=== PATIENT | male | born 1970 | race Caucasian/White ===

== ENCOUNTER 2018-03-22 13:59 | Emergency (ER) | payer MEDICAID ==
--- NOTE | 2018-03-22 16:33 | Emergency Department Record ---
History of Present Illness - General Chief complaint: Abscess Stated complaint: RIGHT UPPER ARM INFECTION Time Seen by Provider: 03/22/18 15:57 Source: Patient Mode of Arrival: Ambulatory Limitations: No limitations - History of Present Illness Initial comments: The patient has a hx of skin abscesses and now has another to the back of the R arm for 1 week. He denies any fever, chills, vomiting or diarrhea. complaint: Abscess/boil Onset/Timin -: Week(s) Quality: Aching Worsens with: None Context: None - Related Data Previous Rx's Medication Instructions Recorded Clindamycin HCl [Cleocin HCl] 300 mg PO QID #28 capsule 03/22/18 Naproxen [Naprosyn] 500 mg PO BID #14 tablet. 03/22/18 Allergies Allergy/AdvReac Type Severity Reaction Status Date / Time No Known Allergies Allergy none Verified 03/22/18 16:23 Travel Screening - Travel/Exposure Within Last 30 Days Have you traveled within the last 30 days?: No - Travel/Exposure Within Last Year Have you traveled outside the [place] in the last year?: No - Additonal Travel Details Have you been exposed to anyone with a communicable illness?: No - Travel Symptoms Symptom Screening: None Review of Systems Constitutional: Denies: Chills, Fever Past Medical History - SOCIAL HISTORY Smoking Status: Light tobacco smoker (<10/day) Alcohol Use: Rare Drug Use: None - RESPIRATORY Hx Respiratory Disorders: No - CARDIOVASCULAR Hx Cardio Disorders: No - NEURO Hx Neuro Disorders: No - GI Hx GI Disorders: No - Hx Genitourinary Disorders: No - ENDOCRINE Hx Endocrine Disorders: No - MUSCULOSKELETAL Hx Musculoskeletal Disorders: No - PSYCH Hx Psych Problems: No - HEMATOLOGY/ONCOLOGY Hx Hematology/Oncology Disorders: No Family Medical History Any Significant Family History?: No Physical Exam - General General Appearance: Alert, Oriented x3, Cooperative, No acute distress - Head Head exam: Atraumatic, Normocephalic - Eye Eye exam: Normal appearance - Neck Neck exam: Normal inspection, Full ROM. negative: Tenderness - Respiratory Respiratory exam: Normal lung sounds bilaterally. negative: Respiratory distress - Cardiovascular Cardiovascular Exam: Regular rate, Normal rhythm, Normal heart sounds - Extremities Extremities exam: Normal capillary refill, Tenderness (At the abscess site. The abscess is pointing presently and ready to burst.), Other (The R arm and hand is NVI.). negative: Normal inspection (There is a large abscess to the medial R posterior arm with mild surrounding cellultis.) Image of Full Body: 1 - Area of abscess and mild surrounding cellulitis. - Back Back exam: Reports: Normal inspection - Neurological Neurological exam: Alert. negative: Motor sensory deficit Course Vital Signs 03/22/18 16:16 Temperature 98.0 F Pulse Rate 110 H Respiratory 20 Rate Blood Pressure 130/76 Pulse Ox 100 - Reevaluation(s) Reevaluation #1: Procedure note: The R arm abscess was cleansed with betadine and a # 10 blade was used to Incise and open up the area. A moderate amount of purulent material was expressed. The cavity was probed and then packed with iodoform gauze. There were no complications. 03/22/18 16:30 Disposition Disposition: Discharge Clinical Impression: Abscess of skin Qualifiers: Site of cutaneous abscess: extremity Site of cutaneous abscess of extremity: upper extremity Laterality: right Qualified Code(s): L02.413 - Cutaneous abscess of right upper limb Disposition: Home, Self-Care Condition: (2) Stable Instructions: Abscess Incision and Drainage (ED) Additional Instructions: Please keep the area clean and dry for 2 days and then removed the packing at home in 2 days. Take the Clindamycin as directed and use Naprosyn for pain. Please return to the ER for any worsening symptoms. Please see a family doctor in 1-2 weeks for recheck also. Prescriptions: Clindamycin HCl [Cleocin HCl] 300 mg PO QID #28 capsule Naproxen [Naprosyn] 500 mg PO BID #14 tablet.dr Forms: Patient Portal Access Time of Disposition: 16:33 Quality - Quality Measures Quality Measures: N/A - Blood Pressure Screening View Details: Yes Does Patient Have Any of the Following: No Blood Pressure Classification: Pre-Hypertensive BP Reading Systolic Measurement: 130 Diastolic Measurement: 76 Screening for High Blood Pressure: < Pre-Hypertensive BP, F/U Documented > [ G8950] Pre-Hypertensive Follow-up Interventions: Referral to alternative/primary care provider.
== END 2018-03-22 16:45 | disposition home or self-care (01) ==
LOC: ER 13:59
DX: L02.413 Cutaneous abscess of right upper limb (principal); F17.210 Nicotine dependence, cigarettes, uncomplicated
CPT/HCPCS: 10060; 99284

== ENCOUNTER 2018-04-15 11:28 | Emergency (ER) | payer MEDICAID ==
[2018-04-15] MEDS ORDERED: KETOROLAC 30 MG/ML VIAL IM ONE (12:08)
--- NOTE | 2018-04-15 12:12 | Emergency Department Record ---
History of Present Illness - General Chief complaint: Lower Extremity Pain Stated complaint: HIP AND FOOT PAIN Time Seen by Provider: 04/15/18 12:00 Source: Patient Mode of Arrival: Wheelchair Limitations: No limitations - History of Present Illness Initial comments: The patient is here due to injuring his R knee and ankle while falling 3 days ago. Since he has not been able to weight bear due to the pain. He denies any fever, chills, or numbness. The patient does have a hx of gouty arthritis in the feet. MD Complaint: Extremity pain Onset/Timin -: Days(s) Location: Right, Lower Leg Improves with: Nothing Worsens with: Nothing, Weight bearing, Other - Related Data Previous Rx's Medication Instructions Recorded Prednisone [Prednisone 20Mg] 40 mg PO DAILY #10 tab 04/15/18 Tramadol HCl 50 mg PO Q8H #20 tab 04/15/18 Allergies Allergy/AdvReac Type Severity Reaction Status Date / Time No Known Allergies Allergy none Verified 03/22/18 16:23 Travel Screening - Travel/Exposure Within Last 30 Days Have you traveled within the last 30 days?: No - Travel/Exposure Within Last Year Have you traveled outside the [place] in the last year?: No - Additonal Travel Details Have you been exposed to anyone with a communicable illness?: No - Travel Symptoms Symptom Screening: None Review of Systems Constitutional: Denies: Chills, Fever Eyes: Denies: Eye discharge ENT: Denies: Congestion Respiratory: Denies: Cough, Dyspnea Past Medical History - SOCIAL HISTORY Smoking Status: Current every day smoker Alcohol Use: None Alcohol Use Comment: quit 15 yrs Drug Use: None - RESPIRATORY Hx Respiratory Disorders: No - CARDIOVASCULAR Hx Cardio Disorders: No - NEURO Hx Neuro Disorders: No - GI Hx GI Disorders: No - Hx Genitourinary Disorders: No - ENDOCRINE Hx Endocrine Disorders: No - MUSCULOSKELETAL Hx Musculoskeletal Disorders: No - PSYCH Hx Psych Problems: No - HEMATOLOGY/ONCOLOGY Hx Hematology/Oncology Disorders: No Family Medical History Any Significant Family History?: No Physical Exam - General General Appearance: Alert, Oriented x3, Cooperative, No acute distress - Head Head exam: Atraumatic, Normocephalic, Normal inspection - Eye Eye exam: Normal appearance - Neck Neck exam: Normal inspection, Full ROM. negative: Tenderness - Respiratory Respiratory exam: Normal lung sounds bilaterally. negative: Respiratory distress - Cardiovascular Cardiovascular Exam: Regular rate, Normal rhythm, Normal heart sounds - Extremities Extremities exam: Tenderness (There is significant tenderness to the R knee and R ankle to palpation. There are mild effusions over both joints and decreased ROM due to the pain.), Other (The R lower leg and foot is NVI with normal pulses.). negative: Normal inspection, Full ROM, Pedal edema Course Vital Signs 04/15/18 11:51 Temperature 98.9 F Pulse Rate 107 H Respiratory 18 Rate Blood Pressure 133/96 Pulse Ox 97 - Reevaluation(s) Reevaluation #1: The patient is doing better but is still having pain. I did discuss the lab results and the need for F/U. 04/15/18 13:21 Medical Decision Making - Data Complexity MDM Data: X-Ray Ordered and/or Reviewed - Radiology Data Radiology results: Report reviewed (R knee: Joint effusion, O/W neg. R ankle : arthritic changes but no acute changes.) Disposition Disposition: Discharge Clinical Impression: Leg pain, right Disposition: Home, Self-Care Condition: (2) Stable Instructions: Knee Sprain (ED), Leg Sprain (ED) Additional Instructions: Please ice and elevate the R leg and use the walter wraps to the R knee and ankle. Use crutches for walking. Please take the Tramadol along with the Prednisone. Please see a family doctor later this week for further evaluation. Return to the ER for any worsening symptoms, pain, swelling, or fever. Prescriptions: Prednisone [Prednisone 20Mg] 40 mg PO DAILY #10 tab Tramadol HCl 50 mg PO Q8H #20 tab Forms: Patient Portal Access Time of Disposition: 13:26 Quality - Quality Measures Quality Measures: N/A - Blood Pressure Screening View Details: Yes Does Patient Have Any of the Following: No Blood Pressure Classification: Hypertensive Reading Systolic Measurement: 133 Diastolic Measurement: 96 Screening for High Blood Pressure: < First Hypertensive BP, F/U Documented > [ G8950] First Hypertensive Follow-up Interventions: Referral to alternative/primary care provider.
--- NOTE | 2018-04-16 08:42 | RADIOLOGY REPORT ---
EXAM: RIGHT ANKLE HISTORY: RECENT FALL WITH GENERALIZED ANKLE PAIN AND SWELLING. TECHNIQUE: Three views of the right ankle were obtained. Comparison: Right foot radiographs 09/28/10. FINDINGS: Diffuse ankle soft tissue swelling. Tiny 3 mm calcific density at the tip of the medial malleolus suggesting age indeterminate avulsion. Nonspecific cortical irregularity along the posterior talus which could represent degenerative change or age indeterminate trauma. Anterior tibiotalar osteophytes suggest osteoarthrosis. Small plantar calcaneal enthesophyte, enlarged since comparison. Prominent incidental os peroneum is noted. IMPRESSION: ABOVE. JOB NUMBER: [id number] [facility]
--- NOTE | 2018-04-16 08:51 | RADIOLOGY REPORT ---
EXAM: RIGHT KNEE HISTORY: FALL, MEDIAL KNEE PAIN. TECHNIQUE: Three views of the right knee were obtained. Comparison: None. FINDINGS: Large knee joint effusion. No acute fracture is detected. No dislocation. No significant degenerative findings. IMPRESSION: LARGE KNEE JOINT EFFUSION WITHOUT DEFINITE ACUTE OSSEOUS ABNORMALITY. JOB NUMBER: [id number] [facility]
== END 2018-04-15 13:40 | disposition home or self-care (01) ==
LOC: ER 11:28
DX: G89.11 Acute pain due to trauma (principal); M25.561 Pain in right knee; M25.571 Pain in right ankle and joints of right foot; F17.210 Nicotine dependence, cigarettes, uncomplicated
CPT/HCPCS: 99283; 96372; 99284; 73610; 73562; J1885

== ENCOUNTER 2018-04-29 13:23 | Emergency (ER) | payer MEDICAID ==
--- NOTE | 2018-04-29 13:50 | Emergency Department Record ---
History of Present Illness - General Chief complaint: Lower Extremity Pain Stated complaint: RT LEG PAIN Time Seen by Provider: 04/29/18 13:25 Source: Patient Mode of Arrival: Ambulatory Limitations: No limitations - History of Present Illness Initial comments: The patient is here due to R knee and ankle pain for almost 3 weeks. He has a hx of gout and now has had pain and swelling in the knee and ankle for weeks. The patient was here in the ER 2 weeks ago and was treated with prednisone and tramadol and did improve. He ran out of medicines and has not followed up with a PCP. MD Complaint: Extremity pain Onset/Timin -: Week(s) Location: Right, Ankle, Foot, Lower Leg History of Same: Yes Improves with: Nothing Worsens with: Nothing Associated Symptoms: Denies other symptoms - Related Data Previous Rx's Medication Instructions Recorded Colchicine 0.6 mg PO BID #20 tablet 04/29/18 Naproxen [Naprosyn] 500 mg PO BID #20 tablet. 04/29/18 Allergies Allergy/AdvReac Type Severity Reaction Status Date / Time No Known Allergies Allergy none Verified 04/29/18 13:30 Travel Screening - Travel/Exposure Within Last 30 Days Have you traveled within the last 30 days?: No Review of Systems Constitutional: Denies: Chills, Fever Eyes: Denies: Eye discharge ENT: Denies: Congestion Respiratory: Denies: Cough, Dyspnea Past Medical History - SOCIAL HISTORY Smoking Status: Current every day smoker Alcohol Use: None Drug Use: None - RESPIRATORY Hx Respiratory Disorders: No - CARDIOVASCULAR Hx Cardio Disorders: No - NEURO Hx Neuro Disorders: No - GI Hx GI Disorders: No - Hx Genitourinary Disorders: No - ENDOCRINE Hx Endocrine Disorders: No - MUSCULOSKELETAL Hx Musculoskeletal Disorders: No - PSYCH Hx Psych Problems: No - HEMATOLOGY/ONCOLOGY Hx Hematology/Oncology Disorders: No Family Medical History Any Significant Family History?: No Physical Exam - General General Appearance: Alert, Oriented x3, Cooperative, No acute distress - Head Head exam: Atraumatic, Normocephalic, Normal inspection - Eye Eye exam: Normal appearance, PERRL - Neck Neck exam: Normal inspection, Full ROM. negative: Tenderness - Respiratory Respiratory exam: Normal lung sounds bilaterally. negative: Respiratory distress - Cardiovascular Cardiovascular Exam: Regular rate, Normal rhythm, Normal heart sounds - Extremities Extremities exam: Joint swelling (There is a mild R knee effusion and diffuse mild tenderness to palpation over the R knee and ankle. There is no joint erythema, warmth or signs of any infection.), Normal capillary refill, Tenderness, Other (The R DP pulse is strong and 2+.). negative: Normal inspection, Full ROM, Pedal edema Course Vital Signs 04/29/18 13:31 Temperature 97.4 F L Pulse Rate 105 H Respiratory 16 Rate Blood Pressure 156/96 Pulse Ox 99 - Reevaluation(s) Reevaluation #1: I did discuss the issues with the patient and the need for further evaluation due to the gout. The patient is aware and will F/U. 04/29/18 15:29 Medical Decision Making - Data Complexity MDM Data: Labs Ordered and/or Reviewed, X-Ray Ordered and/or Reviewed - Lab Data Result diagrams: 04/29/18 13:15 04/29/18 13:15 - Radiology Data Radiology results: Report reviewed (R foot: Neg for acute changes, Gout R 1st MTP joint.) Disposition Disposition: Discharge Clinical Impression: Gout attack Qualifiers: Gout site: multiple sites Gout etiology: unspecified cause Qualified Code(s): M10.9 - Gout, unspecified Disposition: Home, Self-Care Condition: (2) Stable Instructions: Low Purine Diet (ED), Gout (ED) Additional Instructions: Please take the Naprosyn and Colchicine as directed and please see a family doctor for recheck later this week. Prescriptions: Colchicine 0.6 mg PO BID #20 tablet Naproxen [Naprosyn] 500 mg PO BID #20 tablet.dr Forms: Patient Portal Access Time of Disposition: 15:31 Quality - Quality Measures Quality Measures: N/A - Blood Pressure Screening View Details: Yes Does Patient Have Any of the Following: No Blood Pressure Classification: Hypertensive Reading Systolic Measurement: 156 Diastolic Measurement: 96 Screening for High Blood Pressure: < First Hypertensive BP, F/U Documented > [ G8950] First Hypertensive Follow-up Interventions: Referral to alternative/primary care provider.
[2018-04-29 13:53] LABS: HEMATOCRIT 46.8 % (42.0-52.0); HEMOGLOBIN 15.7 gm/dl (14.0-18.0); MEAN CELL VOLUME 90.7 fl (81-97); MEAN CORPUSCULAR HEMOGLOBIN 30.4 pg (27-33); MEAN CORPUSCULAR HGB CONC 33.5 g/dl (32-36); MEAN PLATELET VOLUME 9.6 fl (7.4-10.4); PLATELET COUNT 409 K/uL (130-400); RED BLOOD COUNT 5.16 M/uL (4.40-5.70); RED CELL DISTRIBUTION WIDTH 13.1 % (11.5-14.5); WHITE BLOOD COUNT W/O DIFF 13.4 K/uL (4.2-12.2)
[2018-04-29 14:07] LABS: BLOOD UREA NITROGEN 13 mg/dL (6-20); CREATININE 1.1 mg/dL (0.7-1.2); EST GLOMERULAR FILTRATION RATE > 60 mL/min; TOTAL PROTEIN 8.1 g/dL (6.6-8.7)
[2018-04-29 14:09] LABS: GLUCOSE,RANDOM 97 mg/dL (74-109)
[2018-04-29 14:12] LABS: ALB/GLOB RATIO 1.3 (1.1-1.8); ALBUMIN 4.5 g/dL (4.0-5.0); ALKALINE PHOSPHATASE 95 U/L (40-129); ALT/SGPT 61 U/L (<41); AST/SGOT 33 U/L (10.0-50.0)
[2018-04-29 14:34] LABS: ERYTHROCYTE SEDIMENTATION RATE 50 mm/hr (0-15)
--- NOTE | 2018-04-30 12:58 | RADIOLOGY REPORT ---
EXAM: RIGHT FOOT HISTORY: PAIN. TECHNIQUE: Three views of the right foot were performed. FINDINGS: There is degenerative change of the first metatarsal head. There is mild erosive change. Underlying process such as gout cannot be excluded. There is a hallux valgus deformity. No evidence of fracture or dislocation. Small calcaneal spurs. IMPRESSION: HALLUX VALGUS DEFORMITY WITH DEGENERATIVE CHANGE OF THE FIRST METATARSAL HEAD. THERE IS MILD EROSIVE CHANGE AND SOFT TISSUE SWELLING. UNDERLYING GOUT CANNOT BE ENTIRELY EXCLUDED. JOB NUMBER: [id number] [facility]
== END 2018-04-29 15:56 | disposition home or self-care (01) ==
LOC: ER 13:23
DX: M10.071 Idiopathic gout, right ankle and foot (principal); F17.210 Nicotine dependence, cigarettes, uncomplicated
CPT/HCPCS: 80053; 84550; 85027; 85651; 86140; 99283; 99284